=== PATIENT | male | born 1935 | race Caucasian/White ===

== ENCOUNTER 2018-06-18 14:45 | Inpatient (IN) | payer MEDICARE ==
[~2018-06-18] VITALS: Ht 175.3 cm; Wt 79.8 kg
[2018-06-18 15:50] VITALS: BP 116/79
[2018-06-18 16:07] LABS: BASOPHILS % (AUTO) 0.5 % (0.0-5.0); EOSINOPHILS % (AUTO) 2.5 % (0.0-8.0); HEMATOCRIT 40.2 % (42-54); LYMPHOCYTES % (AUTO) 14.1 % (21.0-51.0); MEAN CORPUSCULAR HEMOGLOBIN 31.8 pg (27.0-33.0); MEAN CORPUSCULAR HGB CONC 34.2 g/dL (32.0-36.0); MEAN CORPUSCULAR VOLUME 92.8 fL (79-99); MONOCYTES % (AUTO) 7.5 % (3.0-13.0); NEUTROPHILS % (AUTO) 75.4 % (40.0-77.0); PLATELET COUNT (AUTO) 192 K/uL (130-400); RED BLOOD CELL COUNT(AUTO) 4.33 MIL/uL (4.50-6.20); RED CELL DISTRIBUTION WIDTH 13.7 % (11.0-15.5); WHITE BLOOD COUNT (AUTO) 7.2 K/uL (4.8-10.8)
[2018-06-18 16:08] LABS: APPEARANCE,URINE Cloudy (CLEAR); BILIRUBIN,URINE Negative (NEGATIVE); COLOR,URINE Yellow (YELLOW); GLUCOSE, URINE (UA) Negative (NEGATIVE); KETONES,URINE Trace mg/dL (NEGATIVE); LEUKOCYTE ESTERASE ,URINE Negative (NEGATIVE); NITRATE,URINE Negative (NEGATIVE); OCCULT BLOOD,URINE Negative (NEGATIVE); PH,URINE 5.5 (5.0-8.0); PROTEIN,URINE Negative (NEGATIVE)
[2018-06-18 16:27] LABS: INR 0.99 (0.85-1.15); PARTIAL THROMBOPLASTIN TIME 29.2 SEC (26.3-35.5); PROTHROMBIN TIME 10.4 SEC (9.6-11.6)
[2018-06-18 16:32] LABS: BACTERIA,URINE None Seen /HPF (None Seen); RBC,URINE None Seen /HPF (0-1); SQUAMOUS EPITHELIAL CELL,UR 0-2 /HPF (0-2); WBC,URINE None Seen /HPF (0-1)
[2018-06-18] MEDS ORDERED: SIMV10TA2 PO (16:33)
[2018-06-18 16:35] LABS: CREATININE 1.4 mg/dL (0.5-1.5)
[2018-06-21] VITALS (23 sets, daily range): BP systolic 115–148; BP diastolic 69–89
[2018-06-21] MEDS ORDERED: CEFAZOLIN SODIUM 1 GM VIAL IVP ONE (06:00)
[2018-06-21] MEDS ORDERED: LACTATED RINGERS 1000ML 1,000 ML IV ONE (11:48)
[2018-06-21] MEDS ORDERED: CEFAZOLIN SODIUM 1 GM VIAL ONE ×2 (11:48→18:23)
[2018-06-21] MEDS ORDERED: ONDANSETRON HCL 4 MG/2 ML VIAL ONE (12:56)
[2018-06-21] MEDS ORDERED: PROPOFOL 10 MG/ML 20ML VIAL IV ONE (12:56)
[2018-06-21] MEDS ORDERED: NEOSTIGMINE 5MG/5ML SYR IV ONE (12:56)
[2018-06-21] MEDS ORDERED: FENTANYL CITRATE PF 50 MCG/1 ML 2ML VIAL ONE (12:56)
[2018-06-21] MEDS ORDERED: LIDOCAINE PF 2% 5ML ABBOJECT ONE (12:56)
[2018-06-21] MEDS ORDERED: MIDAZOLAM HCL 1 MG/ML 2ML VIAL ONE (12:56)
[2018-06-21] MEDS ORDERED: ROCURONIUM 10MG/1ML SYR 10 MG/ML ML ONE (12:56)
[2018-06-21] MEDS ORDERED: DEXAMETHASONE SOD PHOSPHATE 10MG/ML 1ML VIAL ONE (12:56)
[2018-06-21] MEDS ORDERED: ROPIVACAINE 0.5% 5MG/ML 30ML IJ ONE (12:59)
[2018-06-21] MEDS ORDERED: GLYCOPYRROLATE 1 MG/5 ML SYRINGE ONE ×2 (12:59→14:16)
[2018-06-21] MEDS ORDERED: CELECOXIB 200 MG CAP ONE (13:11)
[2018-06-21] MEDS ORDERED: KETOROLAC TROMETHAMINE 15MG/ML ONE (13:11)
[2018-06-21] MEDS ORDERED: ACETAMINOPHEN EXTRA STRENGTH 500 MG TABLET ONE (13:11)
[2018-06-21] MEDS ORDERED: OXYCODONE HCL 10 MG TAB.SR.12H PO ONE (13:12)
[2018-06-21] MEDS: CEFAZOLIN SODIUM 1 GM VIAL ONE ×2 (14:00→17:00)
[2018-06-21] MEDS ORDERED: EPHEDRINE SULFATE 50 MG/ML AMPULE ONE (14:09)
[2018-06-21] MEDS: TRANEXAMIC ACID 1000MG/10ML IV ONE ×2 (14:10→17:55)
[2018-06-21] MEDS ORDERED: DiphenhydrAMINE HCL 50 MG/ML VIAL IVP PRN (17:30)
[2018-06-21] MEDS ORDERED: OXYCODONE HCL 5 MG TAB PO PRN (17:30)
[2018-06-21] MEDS ORDERED: FE FUMARATE/FA/MV, MIN COMB#15 1 TAB PO PRN (17:30)
[2018-06-21] MEDS: ACETAMINOPHEN EXTRA STRENGTH 500 MG TABLET PO SCH (17:30)
[2018-06-21] MEDS ORDERED: ONDANSETRON HCL 4 MG/2 ML VIAL IVP PRN (17:30)
[2018-06-21] MEDS ORDERED: POTASSIUM CHLORIDE 10% ELIXIR 20 MEQ/15 ML UDCUP PO PRN (17:30)
[2018-06-21] MEDS ORDERED: POTASSIUM CHLORIDE 20 MEQ ERTAB PO PRN (17:30)
[2018-06-21] MEDS ORDERED: TRAMADOL HCL 50 MG TABLET PO PRN (17:30)
[2018-06-21] MEDS ORDERED: LIDOCAINE HCL-MPF 1% 2ML VIAL IVP PRN (17:30)
[2018-06-21] MEDS ORDERED: KETOROLAC TROMETHAMINE 15MG/ML IV PRN (17:30)
[2018-06-21] MEDS ORDERED: TEMAZEPAM 15 MG CAPSULE PO PRN (17:30)
[2018-06-21] MEDS ORDERED: POTASSIUM CHLORIDE 20MEQ/100ML 100 ML IV PRN (17:30)
[2018-06-21] MEDS: SODIUM CHLORIDE 0.9% 1000ML 1,000 ML IV SCH (20:03)
[2018-06-21] MEDS: OXYCODONE HCL 5 MG TAB PO PRN (21:17)
[2018-06-21] MEDS: PREGABALIN 25 MG CAP PO SCH (21:18)
[2018-06-21] MEDS: CELECOXIB 200 MG CAP PO SCH (21:18)
[2018-06-21] MEDS: FAMOTIDINE 20MG TAB 20 MG TAB PO SCH (21:18)
[2018-06-21] MEDS: ASPIRIN 325 MG TABLET PO SCH (21:18)
[2018-06-21] MEDS: CEFAZOLIN SODIUM 1 GM VIAL IVP SCH (22:17)
[2018-06-22 00:05] VITALS: BP 101/60
[2018-06-22] MEDS: ACETAMINOPHEN EXTRA STRENGTH 500 MG TABLET PO SCH ×3 (01:15→17:30)
[2018-06-22] MEDS: SODIUM CHLORIDE 0.9% 1000ML 1,000 ML IV SCH ×2 (03:28→13:31)
[2018-06-22 04:02] LABS: HEMATOCRIT 32.1 % (42-54); MEAN CORPUSCULAR HEMOGLOBIN 32.6 pg (27.0-33.0); MEAN CORPUSCULAR HGB CONC 35.3 g/dL (32.0-36.0); MEAN CORPUSCULAR VOLUME 92.4 fL (79-99); NUCLEATED RED BLOOD CELLS 0.1 % (0.0-0.19); PLATELET COUNT (AUTO) 134 K/uL (130-400); RED BLOOD CELL COUNT(AUTO) 3.48 MIL/uL (4.50-6.20); RED CELL DISTRIBUTION WIDTH 13.3 % (11.0-15.5); WHITE BLOOD COUNT (AUTO) 7.1 K/uL (4.8-10.8)
[2018-06-22 04:12] VITALS: BP 94/64
[2018-06-22 04:12] LABS: CREATININE 1.4 mg/dL (0.5-1.5); POTASSIUM 4.4 mmol/L (3.5-5.1)
[2018-06-22] MEDS: CEFAZOLIN SODIUM 1 GM VIAL IVP SCH (06:38)
[2018-06-22 08:13] VITALS: BP 125/80
[2018-06-22] MEDS: TAMSULOSIN HCL 0.4 MG CAP.ER.24H PO SCH (08:18)
[2018-06-22] MEDS: CELECOXIB 200 MG CAP PO SCH ×2 (10:12→20:50)
[2018-06-22] MEDS: ASPIRIN 325 MG TABLET PO SCH ×2 (10:12→20:50)
[2018-06-22] MEDS: PREGABALIN 25 MG CAP PO SCH ×2 (10:13→20:50)
[2018-06-22] MEDS: CALCIUM CARBONATE 500 MG TABLET PO PRN (10:13)
[2018-06-22] MEDS: POLYETHYLENE GLYCOL 3350 17 GM POWD.PACK PO SCH (10:13)
[2018-06-22] MEDS: FAMOTIDINE 20MG TAB 20 MG TAB PO SCH ×2 (10:13→20:50)
[2018-06-22 11:29] VITALS: BP 113/77
[2018-06-22 16:26] VITALS: BP 87/59
[2018-06-22 20:08] VITALS: BP 97/59
[2018-06-22] MEDS: OXYCODONE HCL 5 MG TAB PO PRN (20:51)
[2018-06-22] MEDS ORDERED: SIMVASTATIN 10 MG TABLET PO SCH (21:00)
[2018-06-23 00:08] VITALS: BP 109/67
[2018-06-23] MEDS: ACETAMINOPHEN EXTRA STRENGTH 500 MG TABLET PO SCH ×3 (02:03→17:39)
[2018-06-23 04:08] VITALS: BP 92/57
[2018-06-23 04:46] LABS: MEAN CORPUSCULAR HGB CONC 35.6 g/dL (32.0-36.0); MEAN CORPUSCULAR VOLUME 92.6 fL (79-99); PLATELET COUNT (AUTO) 128 K/uL (130-400); RED BLOOD CELL COUNT(AUTO) 3.24 MIL/uL (4.50-6.20); RED CELL DISTRIBUTION WIDTH 13.5 % (11.0-15.5); WHITE BLOOD COUNT (AUTO) 6.8 K/uL (4.8-10.8)
[2018-06-23 05:12] LABS: CREATININE 1.4 mg/dL (0.5-1.5); POTASSIUM 3.8 mmol/L (3.5-5.1)
[2018-06-23 07:47] VITALS: BP 119/70
[2018-06-23] MEDS: TAMSULOSIN HCL 0.4 MG CAP.ER.24H PO SCH (08:44)
[2018-06-23] MEDS: CELECOXIB 200 MG CAP PO SCH (08:44)
[2018-06-23] MEDS: CALCIUM CARBONATE 500 MG TABLET PO PRN (08:45)
[2018-06-23] MEDS: POLYETHYLENE GLYCOL 3350 17 GM POWD.PACK PO SCH (08:45)
[2018-06-23] MEDS: FAMOTIDINE 20MG TAB 20 MG TAB PO SCH (08:45)
[2018-06-23] MEDS: ASPIRIN 325 MG TABLET PO SCH (08:45)
[2018-06-23] MEDS: PREGABALIN 25 MG CAP PO SCH (08:45)
[2018-06-23 16:37] VITALS: BP 102/70
[2018-06-23] MEDS ORDERED: HYDR-4457 PO (18:14)
[2018-06-24] MEDS ORDERED: BISACODYL 10 MG SUPP.RECT RC PRN (17:30)
== END 2018-06-23 21:00 | disposition home health service (06) | DRG 483 ==
LOC: EDSTATUS 14:45 → DAHIP 06-21 11:38 → 4AH 06-21 19:07
PROVIDERS: ADMIT Orthopaedic Surgery; ATTEND Orthopaedic Surgery
PROC: 0RRK00Z Replacement of Left Shoulder Joint with Reverse Ball and Socket Synthetic Substitute, Open Approach (ICD-10-PCS; principal; 2018-06-21 12:00)
PROC: 0RBK0ZZ Excision of Left Shoulder Joint, Open Approach (ICD-10-PCS; 2018-06-21 12:00)
DX: M75.112 Incomplete rotator cuff tear or rupture of left shoulder, not specified as traumatic (principal); M19.012 Primary osteoarthritis, left shoulder; M65.812 Other synovitis and tenosynovitis, left shoulder; E78.5 Hyperlipidemia, unspecified; N18.9 Chronic kidney disease, unspecified; G89.29 Other chronic pain; I51.9 Heart disease, unspecified; E78.00 Pure hypercholesterolemia, unspecified; E66.9 Obesity, unspecified; Z68.26 Body mass index [BMI] 26.0-26.9, adult
CPT/HCPCS: 36415; 73020; 80048; 81001; 85025; 85027; 85610; 85730; 88304; 88311; 96374; J0690; J1100; J1885; J2001; J2250; J2405; J2704; J2710; J2795; J3010; J3490; J7030; J7120

== ENCOUNTER → 2019-11-10 | Outpatient (CLI) | payer MEDICARE ==
[~2019-11-10] MED LIST: HYDR-4457 PO; SIMV10TA2 PO
== END | disposition home or self-care (01) ==
LOC: RAH 15:24
PROVIDERS: ATTEND Dermatology
DX: L02.91 Cutaneous abscess, unspecified (principal); R22.32 Localized swelling, mass and lump, left upper limb
CPT/HCPCS: 76882

== ENCOUNTER 2019-12-07 09:28 | Day surgery (SDC) | payer MEDICARE ==
[2019-12-06 12:03] VITALS: BP 141/85
[2019-12-06 12:19] LABS: BASOPHILS % (AUTO) 0.2 % (0.0-5.0); EOSINOPHILS % (AUTO) 0.5 % (0.0-8.0); HEMATOCRIT 36.9 % (42-54); LYMPHOCYTES % (AUTO) 10.1 % (21.0-51.0); MEAN CORPUSCULAR HGB CONC 33.1 g/dL (32.0-36.0); MEAN CORPUSCULAR VOLUME 87.9 fL (79-99); MONOCYTES % (AUTO) 8.1 % (3.0-13.0); NEUTROPHILS % (AUTO) 80.8 % (40.0-77.0); PLATELET COUNT (AUTO) 216 K/uL (130-400); RED CELL DISTRIBUTION WIDTH 13.8 % (11.0-15.5); WHITE BLOOD COUNT (AUTO) 9.3 K/uL (4.8-10.8)
[2019-12-06 12:34] LABS: INR 1.01 (0.85-1.15); PROTHROMBIN TIME 10.9 SEC (9.6-11.6)
[2019-12-06 12:41] LABS: CREATININE 1.4 mg/dL (0.5-1.5); POTASSIUM 4.5 mmol/L (3.5-5.1)
[~2019-12-07] VITALS: Ht 180.3 cm; Wt 80.6 kg
[2019-12-07] VITALS (15 sets, daily range): BP systolic 127–148; BP diastolic 72–89
[~2019-12-07 09:28] MED LIST changes: -HYDR-4457 PO; +LOSA25TA41 PO
--- NOTE | 2019-12-07 09:47 | NUR ---
POTENTIAL FOR INFECTION: SHAVED LEFT SHOULDER / LEFT UPPER ARM, LEFT AXILLAE PER YARI MONTERO, FOLLOWED BY WIPING WITH NABIL: 2% CLORHEXIDINE GLUCONATE CLOTH PATIENTS PRE-OP SKIN PREP.
[2019-12-07] MEDS: CEFAZOLIN SODIUM 1 GM VIAL IVP ONE ×2 (10:00→11:57)
[2019-12-07] MEDS ORDERED: CEFAZOLIN SODIUM 1 GM VIAL ONE ×4 (10:02→10:13)
[2019-12-07] MEDS ORDERED: LACTATED RINGERS 1000ML 1,000 ML IV ONE (10:02)
[2019-12-07] MEDS ORDERED: SODIUM CHLORIDE 0.9% 10 ML VIAL ONE (10:14)
[2019-12-07] MEDS ORDERED: LIDOCAINE PF 2% 5ML ABBOJECT ONE (10:37)
[2019-12-07] MEDS ORDERED: PROPOFOL 10 MG/ML 20ML VIAL IV ONE (10:37)
[2019-12-07] MEDS ORDERED: ROCURONIUM 10MG/1ML SYR 10 MG/ML ML ONE ×2 (10:38→11:57)
[2019-12-07] MEDS ORDERED: FENTANYL CITRATE PF 50 MCG/1 ML 2ML VIAL ONE (10:38)
[2019-12-07] MEDS ORDERED: EPHEDRINE SULFATE 50 MG/ML AMPULE ONE (11:34)
[2019-12-07] MEDS ORDERED: GLYCOPYRROLATE 1 MG/5 ML SYRINGE ONE ×2 (11:56→13:12)
[2019-12-07] MEDS ORDERED: NEOSTIGMINE 5MG/5ML SYR IV ONE (11:56)
[2019-12-07] MEDS: SODIUM CHLORIDE 0.9% 1000ML 1,000 ML IV ONE ×2 (11:56→12:25)
[2019-12-07] MEDS ORDERED: ONDANSETRON HCL 4 MG/2 ML VIAL ONE (12:20)
[2019-12-07] MEDS ORDERED: ACET1TAB12 PO (12:37)
--- NOTE | 2019-12-07 12:50 | NUR ---
PT IN SINUS LUPE AND PAC. PT DENIES CP OR SOB. PT AWAKE AND ALERT, VS STABLE. YOLANDA PAN NOTIFIED, NO NEW ORDERS GIVEN. MONITOR PT. Addendum: 12/07/19 at 1309 by TOMASA VARMA RN RN Amended: Links added.
--- NOTE | 2019-12-07 13:45 | NUR ---
POST RECEIVED PT FROM PACU, S/P LEFT SHOULDER ABSCESS I&D, DRESSING TO SITE DRY AND INTACT, VS STABLE ON ARRIVAL. PT DENIED ANY DISCOMFORTS. SPOUSE AT BEDSIDE. CALL LIGHT WITHIN REACH.
--- NOTE | 2019-12-07 14:15 | NUR ---
DC DC INSTRUCTIONS GIVEN TO PT SPOUSE WITH RX, INSTRUCTED ON NEW MED REGIMEN, AND DAILY DRESSING CHANGES. AND TO F/U WITH DR. Griselda LAZO , SPOUSE VERBALIZED UNDERSTANDING. PIV REMOVED , SITE ASYMPTOMATIC,
--- NOTE | 2019-12-07 14:25 | NUR ---
DC PT DC HOME VIA WC , NO DISTRESS NOTED. PT DENIED ANY PAIN OR DISCOMFORTS. PT ACCOMPANIED BY SPOUSE LEFT SHOULDER DRESSING DRY AND INTACT
== END 2019-12-07 14:25 | disposition home or self-care (01) ==
LOC: DAH 09:28
PROVIDERS: ATTEND Orthopaedic Surgery
DX: L02.412 Cutaneous abscess of left axilla (principal); M79.89 Other specified soft tissue disorders; E78.5 Hyperlipidemia, unspecified; I12.9 Hypertensive chronic kidney disease with stage 1 through stage 4 chronic kidney disease, or unspecified chronic kidney disease; N18.9 Chronic kidney disease, unspecified; M19.90 Unspecified osteoarthritis, unspecified site; Z79.899 Other long term (current) drug therapy; Z87.891 Personal history of nicotine dependence; Z98.890 Other specified postprocedural states
CPT/HCPCS: 11042; 36415; 80048; 85025; 85610; 88305; A4213; A4215; A4221; A4222; A4223; A4600; A4649; A4663; A4930; A5120; J0690 ×4; J2001; J2405; J2704; J2710; J3010; J3490 ×3; J7030 ×2; J7120

== ENCOUNTER → 2019-12-30 | Outpatient (CLI) | payer MEDICARE ==
[~2019-12-30] MED LIST changes: +ACET1TAB12 PO
== END ==
LOC: RAH 13:49
PROVIDERS: ATTEND Dermatology
DX: R22.32 Localized swelling, mass and lump, left upper limb (principal)
CPT/HCPCS: 73200

== ENCOUNTER → 2021-09-06 | Outpatient (CLI) | payer MEDICARE | END | disposition home or self-care (01) | LOC: RAH 13:12 | PROVIDERS: ATTEND Orthopaedic Surgery | DX: M86.5 Other chronic hematogenous osteomyelitis (principal); M21.822 Other specified acquired deformities of left upper arm; Z96.612 Presence of left artificial shoulder joint | CPT/HCPCS: 73200 ==